=== PATIENT | female | born 1980 | race Caucasian/White ===

== ENCOUNTER 2018-08-01 12:33 | Outpatient (CLI) | payer BC ==
[2018-08-01] MEDS ORDERED: LIDOCAINE-MPF 1%, 5ML ONE (12:47)
== END 2018-08-01 23:59 | disposition home or self-care (01) ==
LOC: RAD 12:33
PROVIDERS: ATTEND Family Medicine
DX: E04.1 Nontoxic single thyroid nodule (principal)
CPT/HCPCS: 10005; 76942; 88173

== ENCOUNTER 2018-08-02 16:04 | Outpatient (CLI) | payer BC | END 2018-08-02 23:59 | disposition home or self-care (01) | LOC: RAD 16:04 | PROVIDERS: ATTEND Family Medicine | DX: M79.661 Pain in right lower leg (principal); R60.9 Edema, unspecified ==